=== PATIENT | male | born 1970 | race Hispanic/Latino ===

== ENCOUNTER 2022-11-07 07:10 | Emergency (ER) | payer OTHER ==
[2022-11-07] MEDS ORDERED: KETOROLAC 30 MG/ML INJ ONE (07:37)
[2022-11-07] MEDS ORDERED: TDAP (DIPHTH,PERTUSS(ACELL),TET VAC) 0.5 ML VIAL IMVAC ONE (07:37)
[2022-11-07 07:45] LABS: Absolute Lymphocytes (CBC) 1.5 K/uL (0.7-4.9); Hematocrit 45.9 % (39.6-49.0); Lymphocytes % 25.4 % (15.3-44.8); MCV 88.2 fL (80-100); MPV 8.8 fL (7.6-11.3)
--- NOTE | 2022-11-07 07:52 | RAD REPORT ---
EXAM DESCRIPTION: CT - [id number] - 11/07/2022 7:33 am CLINICAL HISTORY: Trauma, head and neck injury. trauma COMPARISON: Facial Bones W/ Mpr dated 11/07/2022 TECHNIQUE: Axial 5 mm thick images of the head were obtained. Axial 2 mm thick images of the cervical spine were obtained with sagittal and coronal reconstruction images generated and reviewed. All CT scans are performed using dose optimization technique as appropriate and may include automated exposure control or mA/KV adjustment according to patient size. FINDINGS: CT HEAD WITHOUT CONTRAST: No acute hemorrhage, hydrocephalus or extra-axial collection is identified.No areas of brain edema or midline shift. Trace maxillary sinus thickening.The calvarium is intact. CT CERVICAL SPINE WITHOUT CONTRAST: No fracture or subluxation.No prevertebral soft tissues swelling is identified. Fusion at the left C4 -5 facets may be related to degenerative changes or congenital. Neural foraminal narrowing noted of v arying degrees. This is most advanced at C6-7. IMPRESSION: No acute intracranial or cervical spine findings.
--- NOTE | 2022-11-07 08:00 | RAD REPORT ---
EXAM DESCRIPTION: CT - CTFB CLINICAL HISTORY: trauma COMPARISON: No comparisons TECHNIQUE: Axial 2 mm thick images of the face were obtained with sagittal and coronal reconstructio n images. All CT scans are performed using dose optimization technique as appropriate and may include automated exposure control or mA/KV adjustment according to patient size. FINDINGS: Fracture of the anterior aspect of the maxilla with involvement of the alveolar ridge invo lving the right central and lateral incisor. The fracture line extends across the palatine process an d between the left first and second premolars. The fracture line approaches but does not definitively extend into the floor of the left maxillary sinus. Soft tissue swelling of the face with laceration. Right central, lateral incisor, and canine of the maxilla are subluxed. The globes and orbital contents are grossly unremarkable.Mild thickening in both maxillary sinuses. IMPRESSION: Fracture of the anterior aspect of the maxilla involving the palatine process and alveol ar ridge with subluxation of several teeth. The fracture line comes into close proximity to the left maxillary sinus but no definite involvement. The mandible is intact.
--- NOTE | 2022-11-07 08:12 | ER ---
Nurse's Notes 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 No LOC. PT states "I was unloading approximately 50 K pounds and I lost control of the crank bar and ended up hitting me in the mouth and made me fall back onto my butt". Laceration noted to right side of chin, no active bleeding noted to site. 3 right front teeth noted to be absent, mild bleeding to sites. Denies nausea/vomiting. Reports mouth and nose pain. 07:17 Coronavirus screen: At this time, the client does not indicate any symptoms associated aa5 with coronavirus-19. Ebola Screen: Patient denies travel to an Ebola-affected area in the 21 days before illness onset. Initial Sepsis Screen: Does the patient meet any 2 criteria? RR > 20 per min. HR > 90 bpm. Yes Does the patient have a suspected source of infection? No. Patient's initial sepsis screen is negative. Risk Assessment: Do you want to hurt yourself or someone else? Patient reports no desire to harm self or others. Onset of symptoms was November 07, 2022. 07:17 Acuity: RENE 2 aa5 07:17 Method Of Arrival: EMS: [facility] aa5 09:44 Care prior to arrival: None. Mechanism of Injury: Hit in mouth w/ "crank bar". Trauma ph event details: Injury occurred in the [facility]. Historical: - Allergies: 07:17 No Known Allergies; aa5 - PMHx: 07:17 Diabetes mellitus; Hypercholesterolemia; aa5 - PSHx: 07:17 None; aa5 - Immunization history:: Last tetanus immunization: unknown. - Social history:: Smoking status: Patient denies any tobacco usage or history of. - Immunization history: Last tetanus immunization: unknown. Screenin:47 [facility] ED Fall Risk Assessment (Adult) History of falling in the last 3 months, ap3 including since admission No falls in past 3 months (0 pts). Abuse screen: Denies threats or abuse. Nutritional screening: No deficits noted. Tuberculosis screening: No symptoms or risk factors identified. Primary Survey: 07:30 NO uncontrolled hemorrhage observed. Breathing/Chest: Spontaneous respiratory effort, ld1 equal unlabored respirations, breath sounds clear bilaterally, regular pattern, symmetrical chest rise and fall. Circulation: No external hemorrhage present. Regular and strong central pulse, skin warm/dry/normal color. Disability Client is alert. Exposure/Environment: All clothing and personal items were removed. Forensic evidence collection is not deemed to be indicated at this time. Items placed in patient belonging bag. There is no evidence of uncontrolled external bleeding. Reassessment Breathing: Spontaneous respiratory effort, equal unlabored respirations, breath sounds clear bilaterally, regular pattern with symmetrical chest rise and fall. Circulation: No external hemorrhage noted. Regular and strong central pulse, skin warm/dry/normal color. Disability: Alert. Assessment: 07:30 General: Appears in no apparent distress. uncomfortable, Behavior is calm, cooperative, ld1 appropriate for age. Pain: Complains of pain in face and mouth Pain does not radiate. Pain currently is 10 out of 10 on a pain scale. Quality of pain is described as sharp, shooting, throbbing, Pain began suddenly. 07:30 Neuro: Level of Consciousness is awake, alert, obeys commands, Oriented to person, ld1 place, time, situation. EENT: No signs and/or symptoms were reported regarding the EENT system. Cardiovascular: Capillary refill < 3 seconds Patient's skin is warm and dry. Respiratory: Airway is patent Respiratory effort is even, unlabored. GI: Abdomen is flat, non-distended. : No signs and/or symptoms were reported regarding the genitourinary system. Derm: No signs and/or symptoms reported regarding the dermatologic system. Musculoskeletal: No signs and/or symptoms reported regarding the musculoskeletal system. Injury Description: Laceration sustained to mouth, chin and right jaw was sustained 30-60 minutes ago. a small amount of bleeding noted at this time. 07:55 Reassessment: Patient appears in no apparent distress at this time. Patient and/or ld1 family updated on plan of care and expected duration. Pain level reassessed. Patient is alert, oriented x 3, equal unlabored respirations, skin warm/dry/pink. 07:55 Reassessment:. ld1 08:37 Reassessment: Patient appears in no apparent distress at this time. Patient and/or ld1 family updated on plan of care and expected duration. Pain level reassessed. Patient is alert, oriented x 3, equal unlabored respirations, skin warm/dry/pink. 08:52 Reassessment: Report called to Rachelle at [facility], report form signed by pt, ph awaiting EMS for transport. 09:43 Reassessment: Patient appears in no apparent distress at this time. Patient and/or ph family updated on plan of care and expected duration. Pain level reassessed. Patient is alert, oriented x 3, equal unlabored respirations, skin warm/dry/pink. [facility] at bedside for transfer, report given to EMT-P. 10:00 Reassessment: Pt not transported by EMS at this time d/t a more critical pt requiring ph transfer, will contact another EMS for transport. 11:49 Reassessment: Patient appears in no apparent distress at this time. Patient and/or ph family updated on plan of care and expected duration. Pain level reassessed. Patient is alert, oriented x 3, equal unlabored respirations, skin warm/dry/pink. [facility] at bedside for transport, pt medicated for pain prior to leaving. Vital Signs: 07:17 BP 163 / 106; Pulse 96; Resp 22 S; Temp 97.8(TE); Pulse Ox 98% on R/A; Weight 90.72 kg aa5 (R); Height 5 ft. 8 in. (172.72 cm) (R); Pain 7/10; 08:37 BP 147 / 92; Pulse 87; Resp 18; Pulse Ox 100% on R/A; Pain 3/10; ld1 09:45 BP 143 / 91; Pulse 84; Resp 18; Temp 97.6; Pulse Ox 100% on R/A; ph 11:30 BP 142 / 89; Pulse 82; Resp 18; Temp 97.0; Pulse Ox 99% on R/A; ph 07:17 Body Mass Index 30.41 (90.72 kg, 172.72 cm) aa5 [place] Coma Score: 07:30 Eye Response: spontaneous(4). Verbal Response: oriented(5). Motor Response: obeys ld1 commands(6). Total: 15. 08:37 Eye Response: spontaneous(4). Verbal Response: oriented(5). Motor Response: obeys ld1 commands(6). Total: 15. 09:45 Eye Response: spontaneous(4). Verbal Response: oriented(5). Motor Response: obeys ph commands(6). Total: 15. 11:30 Eye Response: spontaneous(4). Verbal Response: oriented(5). Motor Response: obeys ph commands(6). Total: 15. Trauma Score (Adult): 07:30 Eye Response: spontaneous(1); Verbal Response: oriented(1); Motor Response: obeys ld1 commands(2); Systolic BP: > 89 mm Hg(4); Respiratory Rate: 10 to 29 per min(4); [place] Score: 15; Trauma Score: 12 09:45 Eye Response: spontaneous(1); Verbal Response: oriented(1); Motor Response: obeys ph commands(2); Systolic BP: > 89 mm Hg(4); Respiratory Rate: 10 to 29 per min(4); [place] Score: 15; Trauma Score: 12 11:30 Eye Response: spontaneous(1); Verbal Response: oriented(1); Motor Response: obeys ph commands(2); Systolic BP: > 89 mm Hg(4); Respiratory Rate: 10 to 29 per min(4); [place] Score: 15; Trauma Score: 12 ED Course: 07:12 Patient arrived in ED. ld1 07:13 Renan Thurston DO is Attending Physician. ms3 07:17 Arm band placed on right wrist. ap3 07:18 Patient has correct armband on for positive identification. Placed in gown. Bed in low ap3 position. Call light in reach. Side rails up X2. Pulse ox on. NIBP on. 07:29 Triage completed. aa5 07:30 Patient maintains SpO2 saturation greater than 95% on room air. ld1 07:35 CT Head C Spine In Process Unspecified. EDMS 07:35 Facial Bones W/O Con CT In Process Unspecified. EDMS 07:40 Irrigation of laceration on mouth irrigated with normal saline Patient tolerated well. ap3 07:41 Initial lab(s) drawn, by dc, sent to lab. Inserted saline lock: 20 gauge in left jw7 antecubital area, using aseptic technique. Blood collected. 07:42 CBC with Diff Sent. jw7 07:42 Basic Metabolic Panel Sent. jw7 07:55 Thermoregulation: warm blanket given to patient. ld1 08:01 January Pereyra, RN is Primary Nurse. ph 08:37 initiated transfer to [facility], pt accepted in transfer by Dr Long, admin approval bd given by Kaya Yusuf. pt accepted to ER. 09:44 No provider procedures requiring assistance completed. Patient transferred, IV remains ph in place. 09:49 Primary Nurse role handed off by January Pereyra, HANANE ph 11:07 January Pereyra RN is Primary Nurse. ph Administered Medications: 07:41 Drug: boosterix 0.5 ml Route: IM; Site: right deltoid; aa5 08:48 Follow up: Response: No adverse reaction ph 07:41 Not Given (Physician Discretion): Ketorolac 15 mg IM once aa5 07:41 Drug: Ketorolac 10 mg 10 mg Route: IVP; Site: left antecubital; aa5 08:48 Follow up: Response: No adverse reaction ph 11:33 Drug: Zofran (Ondansetron) 4 mg Route: IVP; Site: left antecubital; ph 11:46 Follow up: Response: No adverse reaction ph 11:35 Drug: morphine 4 mg Route: IVP; Infused Over: 4 mins; Site: left antecubital; ph 11:46 Follow up: Response: No adverse reaction; Pain is decreased; RASS: Alert and Calm (0) ph Medication: 07:41 Vaccine Information Statement (VIS) provided today. Questions and/or concerns aa5 addressed. VIS edition date: June 08, 2021. Intake: 09:45 PO: 0ml; Total: 0ml. ph Output: 09:45 Urine: 300ml (Voided); Total: 300ml. ph Outcome: 08:12 ER care complete, transfer ordered by . ms3 09:45 Transferred by [facility]. to [facility], Transfer form ph completed. X-rays sent w/ patient. 09:45 Condition: stable 09:45 Patient's length of stay was not longer than 2 hours. 09:46 Patient left the ED. ph 11:50 Patient left the ED. ph Signatures: Dispatcher [employer] EDMS Aleena Lopez Audri RN RN aa5 January Pereyra RN RN ph Aleyda Barron, RN RN ap3 Renan Thurston, DO ms3 Xiomara Fisher RN RN ld1 Ananya Mckeon jw7 Corrections: (The following items were deleted from the chart) 07:30 07:17 Initial Sepsis Screen: Does the patient meet any 2 criteria? No. Patient's aa5 initial sepsis screen is negative. Does the patient have a suspected source of infection? No. Patient's initial sepsis screen is negative. 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 No LOC. PT states "I was unloading approximately 50 K pounds and I lost control of the crank bar and ended up hitting me in the mouth and made me fall back onto my butt". Laceration noted to right side of chin, no active bleeding noted to site. 3 right front teeth noted to be absent, mild bleeding to sites. aa5
--- NOTE | 2022-11-07 08:12 | EDPHYS ---
Physician Documentation [facility] Name: Bart Lal Age: 52 yrs Sex: Male : 1970 Arrival Date: 11/07/2022 Time: 07:12 Bed 5 Private MD: ED Physician Renan Thurston HPI: 11/07 07:39 This 52 yrs old Male presents to ER via EMS with complaints of Mouth Injury. ms3 07:39 The patient presents with lost tooth/teeth, pain. The problem is located in the upper ms3 right teeth. Onset: The symptoms/episode began/occurred just prior to arrival. Duration: The symptoms are continuous. Modifying factors: The symptoms are alleviated by nothing, the symptoms are aggravated by nothing. Associated signs and symptoms: Pertinent positives: pain. Severity of symptoms: At their worst the symptoms were moderate, in the emergency department the symptoms are unchanged. Historical: - Allergies: 07:17 No Known Allergies; aa5 - PMHx: 07:17 Diabetes mellitus; Hypercholesterolemia; aa5 - PSHx: 07:17 None; aa5 - Immunization history:: Last tetanus immunization: unknown. - Social history:: Smoking status: Patient denies any tobacco usage or history of. - Immunization history: Last tetanus immunization: unknown. ROS: 07:39 Constitutional: Negative for fever, and chills. ms3 07:39 ENT: Positive for avulsed teeth upper right, lower lip laceration. 07:39 Skin: Positive for Through and through lip laceration. Exam: 07:39 Constitutional: This is a well developed, well nourished patient who is awake, alert, ms3 and in no acute distress. Head/Face: Normocephalic, atraumatic. 07:39 ENT: avulsed teeth upper 5,6,7. Through and through lower lip laceration 4 cm. 07:39 Musculoskeletal/extremity: No midline neck tenderness, no paraspinal mm tenderness. Vital Signs: 07:17 BP 163 / 106; Pulse 96; Resp 22 S; Temp 97.8(TE); Pulse Ox 98% on R/A; Weight 90.72 kg aa5 (R); Height 5 ft. 8 in. (172.72 cm) (R); Pain 7/10; 08:37 BP 147 / 92; Pulse 87; Resp 18; Pulse Ox 100% on R/A; Pain 3/10; ld1 09:45 BP 143 / 91; Pulse 84; Resp 18; Temp 97.6; Pulse Ox 100% on R/A; ph 11:30 BP 142 / 89; Pulse 82; Resp 18; Temp 97.0; Pulse Ox 99% on R/A; ph 07:17 Body Mass Index 30.41 (90.72 kg, 172.72 cm) aa5 [place] Coma Score: 07:30 Eye Response: spontaneous(4). Verbal Response: oriented(5). Motor Response: obeys ld1 commands(6). Total: 15. 08:37 Eye Response: spontaneous(4). Verbal Response: oriented(5). Motor Response: obeys ld1 commands(6). Total: 15. 09:45 Eye Response: spontaneous(4). Verbal Response: oriented(5). Motor Response: obeys ph commands(6). Total: 15. 11:30 Eye Response: spontaneous(4). Verbal Response: oriented(5). Motor Response: obeys ph commands(6). Total: 15. Trauma Score (Adult): 07:30 Eye Response: spontaneous(1); Verbal Response: oriented(1); Motor Response: obeys ld1 commands(2); Systolic BP: > 89 mm Hg(4); Respiratory Rate: 10 to 29 per min(4); [place] Score: 15; Trauma Score: 12 09:45 Eye Response: spontaneous(1); Verbal Response: oriented(1); Motor Response: obeys ph commands(2); Systolic BP: > 89 mm Hg(4); Respiratory Rate: 10 to 29 per min(4); [place] Score: 15; Trauma Score: 12 11:30 Eye Response: spontaneous(1); Verbal Response: oriented(1); Motor Response: obeys ph commands(2); Systolic BP: > 89 mm Hg(4); Respiratory Rate: 10 to 29 per min(4); [place] Score: 15; Trauma Score: 12 MDM: 07:21 Patient medically screened. ms3 08:51 Differential diagnosis: facial fracture vs avulsed teeth vs laceration. Data reviewed: ms3 vital signs, nurses notes, lab test result(s), radiologic studies, CT scan, and as a result, I will transferred. Counseling: I had a detailed discussion with the patient and/or guardian regarding: the historical points, exam findings, and any diagnostic results supporting the discharge/admit diagnosis, lab results, radiology results, the need to transfer to another facility. ED course: Discussed necessity of transfer to higher level of care with patient. Patient understands agrees with plan. All questions were answered. Patient remains in stable condition in the emergency department at this time. Patient given Toradol for pain control in the emergency department. Boostrix administered as patient is unaware of his last tetanus vaccine.. 11/07 07:24 Order name: Basic Metabolic Panel; Complete Time: 08:03 ms3 11/07 07:24 Order name: CBC with Diff; Complete Time: 08:03 ms3 11/07 07:24 Order name: CT Head C Spine; Complete Time: 08:03 ms3 11/07 07:24 Order name: Facial Bones W/O Con CT; Complete Time: 08:03 ms3 11/07 08:19 Order name: SARS RAPID; Complete Time: 09:12 ph 11/07 07:24 Order name: Labs collected and sent; Complete Time: 07:41 ms3 Administered Medications: 07:41 Drug: boosterix 0.5 ml Route: IM; Site: right deltoid; aa5 08:48 Follow up: Response: No adverse reaction ph 07:41 Not Given (Physician Discretion): Ketorolac 15 mg IM once aa5 07:41 Drug: Ketorolac 10 mg 10 mg Route: IVP; Site: left antecubital; aa5 08:48 Follow up: Response: No adverse reaction ph 11:33 Drug: Zofran (Ondansetron) 4 mg Route: IVP; Site: left antecubital; ph 11:46 Follow up: Response: No adverse reaction ph 11:35 Drug: morphine 4 mg Route: IVP; Infused Over: 4 mins; Site: left antecubital; ph 11:46 Follow up: Response: No adverse reaction; Pain is decreased; RASS: Alert and Calm (0) ph Disposition Summary: 11/07/22 08:12 Transfer Ordered Transfer Location: [facility] ms3 Reason: Higher level of care ms3 Condition: Stable ms3 Problem: new ms3 Symptoms: are unchanged ms3 Accepting Physician: Dr Long(01/05/23 11:50) ph Diagnosis - Maxillary fracture, unspecified ms3 - Subluxation teeth ms3 - Laceration without foreign body of lip ms3 - Hyperglycemia, unspecified ms3 Forms: - Medication Reconciliation Form ms3 - SBAR form ms3 Signatures: Dispatcher [employer] Kavitha Siegel RN RN aa5 January Pereyra RN RN ph Renan Thurston DO DO ms3 Xiomara Fisher RN RN ld1 Corrections: (The following items were deleted from the chart) 08:47 08:12 Dr kirkland ms3 09:13 08:47 Dr Mercedes allen3 ms3 09:46 09:13 Dr Long ms3 ph 11:50 09:46 Dr Long ph ph
[2022-11-07 08:54] LABS: SARS-CoV-2 Antigen Rapid Res Negative (Negative)
[2022-11-07] MEDS ORDERED: ONDANSETRON 4 MG/2 ML VIAL ONE (11:30)
[2022-11-07] MEDS ORDERED: MORPHINE 4 MG/ML SYR ONE (11:33)
[2022-11-07 12:20] VITALS: BP 142/89; TEMP 97; O2SAT 99
== END 2022-11-07 11:50 | disposition short-term general hospital (02) ==
LOC: ER 07:10 → EDBD 07:10 → ER 09:46
DX: S02.40CA Maxillary fracture, right side, initial encounter for closed fracture (principal); S01.511A Laceration without foreign body of lip, initial encounter; S03.2XXA Dislocation of tooth, initial encounter; E11.65 Type 2 diabetes mellitus with hyperglycemia; Z20.822 Contact with and (suspected) exposure to COVID-19
CPT/HCPCS: 85025; 80048; 36415; 70450; 72125; 70486; 76377; 96375; 96372; 96374; 99285; 87811; J2405